=== PATIENT | male | born 1985 | race Caucasian/White ===

== ENCOUNTER 2019-11-03 19:24 | Emergency (ER) | payer OTHER ==
[~2019-11-03] VITALS: Ht 182.9 cm; Wt 77.3 kg
[~2019-11-03 19:24] MED LIST: BUPROPION HCL150 M1 PO; CLEOCIN HC150 MG/CAP PO; MOTRIN 200200 MG/TAB PO; NO HOME MEDICATIONS; NORCO 325 MG-51 TAB PO; PERCOCET 325 MG1 TA2 PO; TRAZODONE HCL100 MG PO
[2019-11-03 19:26] VITALS: TEMP 97.9
[2019-11-03] MEDS ORDERED: SUBOXONE 8 MG-21 TAB SL (19:30)
[2019-11-03 21:20] LABS: COLLECTION METHOD CLEAN CATCH
[2019-11-03 21:20] LABS: BASO % 0.3 % (0.0-2.0); EOS # 0.1 (0.0-0.7); EOS % 0.7 % (0-4.0); GRAN # 7.6 (1.4-6.5); GRAN % 63.8 % (42.2-75.2); HEMATOCRIT 45.6 % (42.0-52.0); LYMPH # 3.4 (1.2-3.4); LYMPH % 28.4 % (20.0-51.0); MEAN CELL VOLUME 87 fl (80.0-100.0); MEAN CORPUSCULAR HEMOGLOBIN 29 pg (27.0-31.0); MEAN CORPUSCULAR HGB CONC 33 g/dl (33.0-37.0); MEAN PLATELET VOLUME 8.8 fl (7.4-10.4); MONO # 0.8 (0.1-0.6); MONO % 6.5 % (1.7-9.3); PLATELET COUNT 272 K/mm3 (130-400); RED BLOOD COUNT 5.26 M/mm3 (4.20-5.60)
[2019-11-03 21:26] LABS: MUCOUS Present /lpf; PH 5 (5-8); SQUAMOUS EPITHELIAL None Seen /hpf; URINE APPEARANCE Clear; URINE BACTERIA None Seen /hpf; URINE BILIRUBIN Negative (NEGATIVE); URINE BLOOD Negative (NEGATIVE); URINE COLOR Yellow; URINE GLUCOSE Negative (NEGATIVE); URINE KETONE Trace (NEGATIVE); URINE LEUKOCYTE ESTERASE Negative (NEGATIVE); URINE NITRATE Negative (NEGATIVE); URINE PROTEIN(semi-quant) Negative (NEGATIVE); URINE RBC None Seen /hpf; URINE UROBILINOGEN Negative (NEGATIVE)
[2019-11-03 21:29] LABS: ALANINE AMINOTRANSFERASE 77 U/L (4-49); ALBUMIN 4.9 gm/dL (3.5-5.0); ALKALINE PHOSPHATASE 82 U/L (50-136); ANION GAP 8 mmol/L (7-16); AST,SGOT 33 U/L (15-37); BILIRUBIN,TOTAL 0.4 mg/dL (0.0-1.0); BLOOD UREA NITROGEN 17 mg/dL (9-20); CALCIUM 9.8 mg/dL (8.4-10.2); CARBON DIOXIDE 30 mmol/L (22-30); CHLORIDE 98 mmol/L (98-107); CREATININE, serum 0.63 (0.66-1.25); GLUCOSE 100 mg/dL (74-106); POTASSIUM 4.5 mmol/L (3.4-5.0); SODIUM 135 mmol/L (137-145); TOTAL PROTEIN 8.1 gm/dL (6.4-8.2)
[2019-11-03 21:36] LABS: TRICYCLIC ANTIDEPRESS URINE NEGATIVE
[2019-11-03 21:36] LABS: ACETAMINOPHEN < 10 ug/mL (10-30); ALCOHOL(ethanol),MEDICAL < 10 mg/dL; SALICYLATE < 1.0 mg/dL
[2019-11-03 22:45] VITALS: BP 100/67; PULSE 65
== END 2019-11-03 22:45 | disposition home or self-care (01) ==
LOC: COL.ER 19:24
PROVIDERS: Emergency Medicine
DX: R44.0 Auditory hallucinations (principal); F41.9 Anxiety disorder, unspecified; F17.210 Nicotine dependence, cigarettes, uncomplicated

== ENCOUNTER 2021-12-29 14:14 | Emergency (ER) | payer OTHER ==
[~2021-12-29] VITALS: Ht 182.9 cm; Wt 102.3 kg
[~2021-12-29 14:14] MED LIST changes: +SUBOXONE 8 MG-21 TAB SL
[2021-12-29 16:28] VITALS: BP 132/86; PULSE 84; TEMP 97.8
== END 2021-12-29 16:28 | disposition home or self-care (01) ==
LOC: COL.ER 14:14
DX: R45.86 Emotional lability (principal); G89.29 Other chronic pain; Z28.311 Partially vaccinated for COVID-19; Z79.891 Long term (current) use of opiate analgesic